=== PATIENT | male | born 1940 | race Caucasian/White ===

== ENCOUNTER → 2017-10-22 | Day surgery (SDC) | payer MEDICARE ==
[2017-10-21 15:00] VITALS: BMI 26.9
[~2017-10-22] MED LIST: Bupivacaine PF 0.5% 30 ML VIAL ONE; Dexamethasone 4 mg/ml Vial ONE; Fentanyl 100 MCG/2 ML VIAL IV PRN; Fentanyl 100 MCG/2 ML VIAL ONE; Ketorolac Tromethamine 30 MG/ML VIAL IVP PRN; Lidocaine 1% PF 5 ML VIAL ONE; Midazolam HCl 2 mg/2 ml Vial ONE; Neomycin-Polymyxin 1 ML AMP ONE; Ondansetron HCl/PF 4 MG/2 ML Vial IVP PRN; Ondansetron HCl/PF 4 MG/2 ML Vial ONE; PHENYLEPHRINE-NS 100 MCG/ML 10 ML SYRINGE ONE; PROPOFOL 200 MG/20 ML VIAL ONE; Promethazine HCl 25 MG/ML VIAL IM PRN; Ropivacaine 0.2% 550 ML 550 ML NERVE BLCK SCH; Zolpidem Tartrate 5 MG TAB PO PRN; ePHEDrine/0.9% NaCl/PF SYRINGE 50 mg/10 ml ONE; traMADol HCl 50 MG TAB PO PRN
--- NOTE | 2017-10-22 14:29 | EKG ---
Test Reason : PREOP Blood Pressure : / mmHG Vent. Rate : 089 BPM Atrial Rate : 089 BPM P-R Int : 158 ms QRS Dur : 110 ms QT Int : 350 ms P-R-T Axes : 051 002 048 degrees QTc Int : 425 ms Normal sinus rhythm anterior st segment elevation cannot r/o early acute ischemic changes no old EKG's to compare Confirmed by DR. Prince CAMPBELL ([id number]) on 10/22/2017 2:29:21 PM Referred By: DIEGO Confirmed By:DR. Prince CAMPBELL
--- NOTE | 2017-10-22 17:25 | RAD ---
LEFT ANKLE THREE VIEWS: 10/22/17 Intraoperative fluoroscopy. HISTORY: Ankle fracture. FINDINGS/IMPRESSION: Intraoperative fluoroscopy was provided for internal fixation as performed by Dr. Chairez. Three spo t fluoroscopic images show lateral compression plate transfixing the distal fibula, in anatomic align ment. Fluoro time equals 4 seconds. POS: [facility]
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
== END ==
LOC: SDC 13:03
PROVIDERS: ATTEND Orthopaedic Surgery
PROC: 0QSK04Z Reposition Left Fibula with Internal Fixation Device, Open Approach (ICD-10-PCS; principal; 2017-10-22)
DX: S82.842A Displaced bimalleolar fracture of left lower leg, initial encounter for closed fracture (principal); M19.90 Unspecified osteoarthritis, unspecified site; I10 Essential (primary) hypertension; M54.9 Dorsalgia, unspecified; G89.29 Other chronic pain; K21.9 Gastro-esophageal reflux disease without esophagitis; Z79.1 Long term (current) use of non-steroidal anti-inflammatories (NSAID); Z79.899 Other long term (current) drug therapy; Z88.5 Allergy status to narcotic agent; Z98.890 Other specified postprocedural states
CPT/HCPCS: 27814; 73610; 76001; 93005; 97116; 97139; A4306; C1713 ×4; G8978; G8979; G8980; 93010; J1100; J2001; J2250; J2405; J2704; J2795; J3010; S0020